=== PATIENT | male | born 1995 | race Caucasian/White ===

== ENCOUNTER 2017-10-01 00:27 | Emergency (ER) | payer BC ==
[~2017-10-01] VITALS: Ht 180.3 cm; Wt 90.9 kg
[2017-10-01 00:31] VITALS: TEMP 97.5
[2017-10-01 00:52] LABS: BASO % 0.4 % (0.0-2.0); EOS # 0.1 (0.0-0.7); EOS % 0.5 % (0-4.0); GRAN # 8.2 (1.4-6.5); GRAN % 76.4 % (42.2-75.2); HEMATOCRIT 42.8 % (42.0-52.0); HEMOGLOBIN 15.6 g/dl (13.5-18.0); LYMPH # 1.8 (1.2-3.4); LYMPH % 16.4 % (20.0-51.0); MEAN CELL VOLUME 83 fl (80.0-100.0); MEAN CORPUSCULAR HEMOGLOBIN 30 pg (27.0-31.0); MEAN CORPUSCULAR HGB CONC 36 g/dl (33.0-37.0); MEAN PLATELET VOLUME 10.7 fl (7.4-10.4); MONO # 0.6 (0.1-0.6); MONO % 5.9 % (1.7-9.3); PLATELET COUNT 217 K/mm3 (130-400); RED BLOOD COUNT 5.17 M/mm3 (4.20-5.60); REDCELL DISTRIBUTION WIDTH-CV 12.1 % (11.5-14.5)
[2017-10-01 01:03] LABS: ALANINE AMINOTRANSFERASE 31 U/L (21-72); ALBUMIN 4.6 gm/dL (3.5-5.0); ALKALINE PHOSPHATASE 75 U/L (50-136); ANION GAP 13 mmol/L (7-16); AST,SGOT 31 U/L (15-37); BILIRUBIN,TOTAL 0.5 mg/dL (0.0-1.0); BLOOD UREA NITROGEN 21 mg/dL (9-20); C-REACTIVE PROTEIN < 0.5 mg/dL (0.0-0.9); CALCIUM 9.2 mg/dL (8.4-10.2); CARBON DIOXIDE 28 mmol/L (22-30); CHLORIDE 101 mmol/L (98-107); CREATININE, serum 1.02 mg/dL (0.66-1.25); GLUCOSE 105 mg/dL (74-106); POTASSIUM 4.9 mmol/L (3.4-5.0); SODIUM 143 mmol/L (137-145); TOTAL PROTEIN 8.4 gm/dL (6.4-8.2)
[2017-10-01 01:50] VITALS: BP 131/67; PULSE 77
== END 2017-10-01 01:50 | disposition home or self-care (01) ==
LOC: COL.ER 00:27
PROVIDERS: Nurse Practitioner
DX: R11.2 Nausea with vomiting, unspecified (principal); R19.7 Diarrhea, unspecified; Z88.2 Allergy status to sulfonamides; Z98.890 Other specified postprocedural states
CPT/HCPCS: J2405; J2550; J7030

== ENCOUNTER → 2017-12-16 | Outpatient (CLI) | payer BC | LOC: COL.RAD 08:15 | DX: S43.431A Superior glenoid labrum lesion of right shoulder, initial encounter (principal); S46.811A Strain of other muscles, fascia and tendons at shoulder and upper arm level, right arm, initial encounter | CPT/HCPCS: A9585; Q9967 ==

== ENCOUNTER 2018-02-03 21:36 | Emergency (ER) | payer BC ==
[~2018-02-03] VITALS: Ht 182.9 cm; Wt 93.2 kg
[2018-02-03 21:50] VITALS: BP 114/69; PULSE 64; TEMP 98.3
== END 2018-02-03 22:39 | disposition home or self-care (01) ==
LOC: COL.ER 21:36
DX: S81.011A Laceration without foreign body, right knee, initial encounter (principal); Z23 Encounter for immunization; Z88.2 Allergy status to sulfonamides; W19.XXXA Unspecified fall, initial encounter; Y93.67 Activity, basketball

== ENCOUNTER 2018-05-30 13:57 | Emergency (ER) | payer BC ==
[~2018-05-30] VITALS: Ht 182.9 cm; Wt 88.6 kg
[2018-05-30 14:00] VITALS: BP 141/75; TEMP 98.2
[2018-05-30 15:29] VITALS: PULSE 64
== END 2018-05-30 15:30 | disposition home or self-care (01) ==
LOC: COL.ER 13:57
DX: S60.212A Contusion of left wrist, initial encounter (principal); W23.0XXA Caught, crushed, jammed, or pinched between moving objects, initial encounter; Y92.009 Unspecified place in unspecified non-institutional (private) residence as the place of occurrence of the external cause